=== PATIENT | female | born 1965 | race Caucasian/White ===

== ENCOUNTER 2017-09-26 22:37 | Emergency (ER) | payer MEDICAID ==
[2017-09-26] MEDS ORDERED: ASPIRIN 81 MG CHEWABLE TABLET PO ONE (23:09)
--- NOTE | 2017-09-26 23:18 | Emergency Department Record ---
History of Present Illness - General Chief Complaint: Palpitations Stated Complaint: ELEVATED HEART RATE/HIGH BLOOD PRESSURE, SWEATS Time Seen by Provider: 09/26/17 23:09 Source: Patient Mode of Arrival: Ambulatory Limitations: No limitations - History of Present Illness Initial Comments: 51 yo female presents to ED for evaluation of shortness of breath, diaphoresis, and racing heart that has now resolved. Patient reports that she was outside smoking when her symptoms began, denies chest pain or discomfort symptoms. Patient denies nausea, vomiting, fevers, chills, or recent illness. Patient does report a history of COPD, reports negative stress test <1 year ago and recent echo 3 weeks ago-"Dr. Duff told me I have the heart of a 20 year-old". Patient does report a history of panic attacks, believes that may have been the cause of her symptoms. MD Complaint: Palpitations Onset/Timin -: Hour(s) Context: Occurred during rest Associated Symptoms: Diaphoresis, Shortness of breath - Related Data Home Medications Medication Instructions Recorded Confirmed Last Taken Aspirin [Aspirin EC] 81 mg PO DAILY 09/26/17 09/26/17 Unknown Atorvastatin Calcium [Lipitor] 40 mg PO QPM 09/26/17 09/26/17 Unknown Cholecalciferol (Vitamin D3) 2,000 unit PO DAILY 09/26/17 09/26/17 Unknown [Vitamin D3] Insulin Glargine,Hum.rec.anlog 50 unit SQ BID 09/26/17 09/26/17 Unknown [Basaglar Kwikpen U-100] Lamotrigine 50 mg PO BID 09/26/17 09/26/17 Unknown Lisinopril 10 mg PO DAILY 09/26/17 09/26/17 Unknown Metformin HCl [Metformin HCl ER] 1,000 mg PO DAILY 09/26/17 09/26/17 Unknown Metoprolol Succinate [Toprol Xl] 25 mg PO DAILY 09/26/17 09/26/17 Unknown Risperidone [Risperadol] 1 mg PO BID 09/26/17 09/26/17 Unknown Venlafaxine HCl [Venlafaxine HCl 300 mg PO DAILY 09/26/17 09/26/17 Unknown ER] Allergies Allergy/AdvReac Type Severity Reaction Status Date / Time No Known Drug Allergies Allergy Verified 09/26/17 22:43 Travel Screening - Travel/Exposure Within Last 30 Days Have you traveled within the last 30 days?: No - Travel Symptoms Symptom Screening: None Review of Systems Constitutional: Denies: Chills, Fever, Malaise, Night sweats Eyes: Denies: Eye discharge, Eye pain ENT: Denies: Congestion, Ear pain, Epistaxis Respiratory: Reports: Dyspnea (now resolved). Denies: Cough Cardiovascular: Reports: Palpitations. Denies: Chest pain, Dyspnea on exertion Endocrine: Denies: Fatigue, Heat or cold intolerance Gastrointestinal: Denies: Abdominal pain, Nausea, Vomiting Genitourinary: Denies: Incontinence, Retention Musculoskeletal: Denies: Arthralgia, Back pain Skin: Denies: Bruising, Change in color Neurological: Denies: Abnormal gait, Confusion, Headache, Seizure Psychiatric: Denies: Anxiety Hematological/Lymphatic: Denies: Anemia, Blood Clots Past Medical History - SOCIAL HISTORY Smoking Status: Current every day smoker Alcohol Use: None Drug Use: None - RESPIRATORY Hx Respiratory Disorders: Yes Hx COPD: Yes Hx Sleep Apnea: Yes Hx of CPAP: Yes - CARDIOVASCULAR Hx Cardio Disorders: Yes Hx Hypertension: Yes Comment:: high cholesterol - NEURO Hx Neuro Disorders: Yes Hx Dizziness: Yes - GI Hx GI Disorders: Yes Hx Irritable Bowel: Yes (w/diarrhea) - Hx Genitourinary Disorders: No - ENDOCRINE Hx Endocrine Disorders: Yes Hx Diabetes: Yes Hx Thyroid Disease: No - MUSCULOSKELETAL Hx Musculoskeletal Disorders: Yes - PSYCH Hx Psych Problems: Yes Hx Anxiety: Yes Hx Depression: Yes Comment:: Bipolar - HEMATOLOGY/ONCOLOGY Hx Hematology/Oncology Disorders: Yes Hx Cancer: Yes (Uterus( pre cancerous cells)) Hx Chemotherapy: No Hx Radiation Therapy: No Family Medical History Any Significant Family History?: Yes Hx Cancer: Mother *Cancer Comment: Leukemia Hx Diabetes: Brother/Sister Hx Heart Disease: Father, Brother/Sister Physical Exam - General General Appearance: Alert, Oriented x3, Cooperative, Mild distress Limitations: No limitations - Head Head exam: Atraumatic, Normocephalic, Normal inspection Head exam detail: negative: Abrasion, Contusion, [place]'s sign, General tenderness, Hematoma, Laceration - Eye Eye exam: Normal appearance. negative: Conjunctival injection, Periorbital swelling, Periorbital tenderness, Scleral icterus - ENT Ear exam: negative: Auricular hematoma, Auricular trauma Nasal Exam: negative: Active bleeding, Discharge, Dried blood, Foreign body Mouth exam: negative: Drooling, Laceration, Muffled voice, Tongue elevation - Neck Neck exam: Normal inspection. negative: Meningismus, Tenderness - Respiratory Respiratory exam: Normal lung sounds bilaterally. negative: Rales, Respiratory distress, Rhonchi, Stridor - Cardiovascular Cardiovascular Exam: Regular rate, Normal rhythm, Normal heart sounds - GI/Abdominal GI/Abdominal exam: Soft. negative: Rebound, Rigid, Tenderness - Rectal Rectal exam: Deferred - exam: Deferred - Extremities Extremities exam: Normal inspection. negative: Calf tenderness, Pedal edema, Tenderness - Back Back exam: Denies: CVA tenderness (R), CVA tenderness (L) - Neurological Neurological exam: Alert, Normal gait, Oriented X3 - Psychiatric Psychiatric exam: Normal affect, Normal mood - Skin Skin exam: Normal color. negative: Abrasion Type of lesion: negative: abrasion Course Vital Signs 09/26/17 22:50 Temperature 97.5 F L Pulse Rate [ 101 H Pulse Ox Probe] Respiratory 18 Rate Blood Pressure 132/74 [Left Arm] Pulse Ox 95 - Reevaluation(s) Reevaluation #1: 09/26/17 23:14 EKG: NSR 96 Normal axis, normal intervals No acute ST-T wave changes Patient denies dyspnea currently, denies lower extremity swelling/calf pain or history of DVT. Patient also denies chest pain symptoms or pain with inspiration. As a result, PE seems very unlikely. Will obtain Troponins x 2 (3 ) hours apart as the patient's HEART Score is 2. Reevaluation #2: 09/26/17 23:59 Labs reviewed and are grossly unremarkable for an acute process. Reevaluation #3: 09/27/17 00:18 CXR: No acute process Patient was updated on all results, reports that she is resting comfortably. Patient is willing to stay for repeat Troponin at 3 hours as discussed. Medical Decision Making - Lab Data Result diagrams: 09/26/17 23:18 09/26/17 23:18 Disposition Disposition: Discharge Clinical Impression: Atypical chest pain Disposition: Home, Self-Care Condition: (2) Stable Instructions: Heart Palpitations (ED) Additional Instructions: Return to ED if your symptoms worsen or if you have any concerns. Follow-up with your family doctor in 3-5 days as directed. Forms: Patient Portal Access Time of Disposition: 02:23 Quality - Quality Measures Quality Measures: N/A - Blood Pressure Screening Does Patient Have Any of the Following: No Blood Pressure Classification: Normal BP Reading Systolic Measurement: 112 Diastolic Measurement: 61 Screening for High Blood Pressure: < Normal BP, F/U Not Required > [G8783]
[2017-09-26 23:26] LABS: BASO % 0.4 % (0-6); EOS % 0.4 % (0-6); GRAN % 52.2 % (47-80); HEMOGLOBIN 13.1 gm/dl (11.6-16.0); LYMPH % 38.7 % (16-45); MEAN CELL VOLUME 88.6 fl (81-97); MEAN CORPUSCULAR HEMOGLOBIN 29.8 pg (27-33); MEAN CORPUSCULAR HGB CONC 33.6 g/dl (32-36); MEAN PLATELET VOLUME 9.6 fl (7.4-10.4); MONO % 8.3 % (0-9); PLATELET COUNT 294 K/uL (130-400); RED CELL DISTRIBUTION WIDTH 15.5 % (11.5-14.5); WHITE BLOOD COUNT W/O DIFF 12.3 K/uL (4.2-12.2)
[2017-09-26 23:38] LABS: BLOOD UREA NITROGEN 12 mg/dL (6-20); CREATININE 0.5 mg/dL (0.5-0.9); EST GLOMERULAR FILTRATION RATE > 60 mL/min
[2017-09-26 23:39] LABS: BILIRUBIN,TOTAL < 0.20 mg/dL (0.2-1.0); TOTAL PROTEIN 7.6 g/dL (6.6-8.7)
[2017-09-26 23:41] LABS: GLUCOSE,RANDOM 91 mg/dL (74-109)
[2017-09-26 23:44] LABS: ALB/GLOB RATIO 1.2 (1.1-1.8); ALBUMIN 4.1 g/dL (4.0-5.0); ALKALINE PHOSPHATASE 112 U/L (35-104); ALT/SGPT 19 U/L (<33); AST/SGOT 20 U/L (10.0-35.0)
--- NOTE | 2017-09-28 13:31 | RADIOLOGY REPORT ---
EXAM: CHEST HISTORY: DIFFICULTY BREATHING. TECHNIQUE: Frontal and lateral views of the chest were obtained. Comparison: None. FINDINGS: The heart size is normal. Mild atheromatous change thoracic aorta. Osteopenia. No pneumothorax. There is some equivocal left perihilar infiltrate. Short term follow-up may be of benefit. No pneumothorax. IMPRESSION: EQUIVOCAL LEFT PERIHILAR INFILTRATE. SHORT TERM FOLLOW-UP RECOMMENDED. JOB NUMBER: [id number] [facility]
== END 2017-09-27 02:38 | disposition home or self-care (01) ==
LOC: ER 22:37
DX: R07.89 Other chest pain (principal); R06.02 Shortness of breath; R61 Generalized hyperhidrosis; I10 Essential (primary) hypertension; J44.9 Chronic obstructive pulmonary disease, unspecified; F17.210 Nicotine dependence, cigarettes, uncomplicated
CPT/HCPCS: 71046; 80053; 84484; 85025; 93005; 93010; 99284